=== PATIENT | female | born 1940 | race Caucasian/White ===

== ENCOUNTER → 2016-12-29 | Outpatient (CLI) | payer MEDICARE, BC ==
[~2016-12-29] MED LIST: ATOR10TA23; DON; ESCI10TA; LANS30TA6; LOSA1TAB3; OXYC1TAB9; SYN75
--- NOTE | 2016-12-29 16:42 | PN ---
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 Patient states that on 12/23/2016 she began having pain from the buttock traveling to the groin on the left side. Pain is aching in nature. No radiating symptoms down the leg. Patient denies any specific injury or any type of trauma. Patient states that pain just gradually presented and has been ongoing since. Pain ranges from mild to moderate. Denies any secondary falls or injury. Denies any weakness to the leg. Denies any fever, chills or malaise. Patient was seen by primary care yesterday where labs were drawn and is currently awaiting labs. Patient also has a history of chronic and severe low back pain in which she had laminectomy performed by Dr. Matute in 2010 prior to total hip replacements in which she states significantly improved her symptoms. Has not been taking any medication for the pain. Currently patient is comfortable without any pain complaints. Patient states that up until last Wednesday her hips were "perfect." Review of Systems Const: No Fever, no chills, no Fatigue, normal appetite, no diaphoresis. Resp: No SOB, no wheezing, no chest pain. CV: No chest pain, no palpitaions, no GARCIA. Physical Exam Blood pressure is 123/62, temperature is 97.9, pulse is 63, respiratory rate is 12, height is 5 foot 4 inches, weight is 151 pounds General Appearance: well-developed, well-nourished, in no acute distress. Left hip: While in the supine position patient is able to flex her left hip up to 80 without pain complaints. Full extension. She is able to Abduct up to 40 and adduct to -10. 5/5 strength on resistance with flexion, extension, abduction and adduction. No pain with range of motion on internal and external rotation. Negative straight leg raise on exam today. Imaging X-ray of the bilateral hips and pelvis performed on 12/29/2016 showing all components appearing well aligned, attached and integrated to the bone. No signs of any lucency between metal and bone. Allergies Coded Allergies: Azithromycin (Verified Allergy, Mild, RECTAL BLEEDING, 11/12/10) Assessment/Plan * Left hip pain/buttock pain with no specific trauma or injury. * Physical examination is negative today for any true signs of acute hip pain. * Supportive measures discussed as well as at home exercises and stretches to the low back and hip. * Naproxen 500 mg 1 tab p.o. twice daily #60 with one refill provided for patient today. * Patient was advised to continue monitoring and if pain should continue with no improvement, likely follow-up with emergency management specialist as hip examination is benign today for any acute findings with no pain exacerbation. Patient may also return for repeat evaluation here should she continue with true hip pain/ groin pain. * Follow-up as needed Medications Home Meds Reported Medications Losartan-Hydrochlorothiazide (Hyzaar) 1 Tab Tablet 11/12/10 Belladonna/Phenobarbital () 1 Tab Tab 08/12/10 Escitalopram Oxalate* (Lexapro*) 10 Mg Tablet 08/12/10 Oxycodone Hcl-Acetaminophen* (Oxycodone Hcl-Acetaminophen*) 1 Tab Tablet 08/12/10 Levothyroxine Sodium* (Synthroid*) 75 Mcg Tablet 12/26/09 Lansoprazole* (Prevacid* Soltab) 30 Mg Tab 12/26/09 Atorvastatin (Lipitor) 10 Mg Tablet 12/26/09 ERLIN ROBB PA-C Dec 29, 2016 16:42
--- NOTE | 2016-12-29 17:26 | RADRPT ---
PROCEDURE: XR Left Hip and pelvis. CLINICAL INDICATION: Left hip pain. Pelvic pain. Postop. TECHNIQUE: Two views. Frontal pelvis and lateral left hip. COMPARISON: 07/28/2012. FINDINGS: There is no fracture or dislocation. The soft tissues are normal. There are bilateral total hip arthroplasties. These appear satisfactory with no evidence of loosenin g. There is no lytic or blastic lesion. There are degenerative changes of the lower lumbar spine. IMPRESSION: 1. Satisfactory postoperative appearance of both hips. 2. Degenerative changes of the lower lumbar spine. 3. No change from 07/28/2012. RPTAT: QQ .Dominic Bernard MD, MD Date Time Electronically viewed and signed by .Dominic Bernard MD, MD on 12/29/2016 17:26 .R/
== END | disposition home or self-care (01) ==
LOC: HKI 15:21
DX: Z47.1 Aftercare following joint replacement surgery (principal); Z96.643 Presence of artificial hip joint, bilateral; M25.552 Pain in left hip
CPT/HCPCS: 73502; G0463